=== PATIENT | female | born 1960 | race Caucasian/White ===

== ENCOUNTER → 2016-09-14 | Outpatient (CLI) | payer OTHER ==
--- NOTE | 2016-09-14 16:25 | P.HPBAR ---
Bariatric H&P - History & Physicial H&P Date: 09/14/16 History & Physicial: Visit/CC: Patient initial contact: Initial weight: 113.398 kg Initial weight in pounds: Height: 5 ft 6 in Initial BMI: Last weight: Current weight: 98.475 kg Current weight in pounds: Current BMI: 35.0 [place] body weight (based on NIH guidelines): 58.967 kg Excess body weight loss: The patient is a 55 year-old F who presents for Bariatric Assessment. The patient is status post sleeve gastrectomy. She's doing quite well. 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 Past Anesthesia/Blood Transfusion Reactions: Motion Sickness, Postoperative Nausea & Vomiting (PONV) Past Psychological History: No Psychological Hx Reported Smoking Status: Never smoker Past Alcohol Use History: Occasional Past Drug Use History: None Reported - Past Family History Brother(s) Family Medical History: No Reported History (Patient has 2 brothers no major medical problems) Sister(s) Family Medical History: No Reported History (Patient has 2 sisters no major medical problems) Son(s) Family Medical History: No Reported History (Patient has 2 sons no major medical problems) Daughter(s) Family Medical History: No Reported History (Patient has one daughter no major medical problems) Mother Family Medical History: No Reported History (Mother is 78-year-old and had history of PAD as well as abdominal aortic and resume repair with a stent placement.) Additional Family Medical History / Comment(s): PVD-W/ STENTS PLACEMENT,AAA REPAIR Father Family Medical History: Coronary Artery Disease (CAD) (Father is 79-year-old has history of heart disease.) Additional Family Medical History / Comment(s): HEART DISEASE Surgical - Exam - General well developed, no distress - Eyes PERRL - ENT normal pinna - Neck no masses - Respiratory normal expansion - Cardiovascular Rhythm: regular - Abdomen Abdomen: soft, non tender Bariatric Assessment & Plan Plan: The patient is status post sleeve gastrectomy. She did quite well. She'll follow-up in 2 weeks for recheck. Bariatric Checklist Checklist: Plan: Checklist: EGD: 1. Hiatal hernia: 2. H. Pylori: HgbA1c: Vitamin D: Smoking: Never smoker Primary care physician referral: Psychiatry clearance: Cardiology clearance: Sleep study: Diet journal: VTE risk score: VTE risk level: Rehab needs at discharge:
== END | disposition home or self-care (01) ==
CPT/HCPCS: 99211

== ENCOUNTER → 2016-09-28 | Outpatient (CLI) | payer OTHER ==
[2016-09-28 14:50] VITALS: BP 116/65; PULSE 80; RESP 16; TEMP 97.2
[2016-09-28 15:18] VITALS: BMI 34.3
--- NOTE | 2016-09-28 15:45 | P.HPBAR ---
Bariatric H&P - History & Physicial H&P Date: 09/28/16 History & Physicial: Visit/CC: Sleeve follow-up Patient initial contact: Initial weight: 113.398 kg Initial weight in pounds: 250.00 Height: 5 ft 6 in Initial BMI: 40.9 Last weight: Current weight: 96.479 kg Current weight in pounds: 212.00 Current BMI: 34.3 [place] body weight (based on NIH guidelines): 58.967 kg Excess body weight loss: 31.0% The patient is a 55 year-old F who presents for Bariatric Assessment. The patient presents for gastric sleeve follow-up. She is doing quite well. She is approximately 1 month postop. She has minimal GERD symptoms. 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 Past Anesthesia/Blood Transfusion Reactions: Motion Sickness, Postoperative Nausea & Vomiting (PONV) Past Psychological History: No Psychological Hx Reported Smoking Status: Never smoker Past Alcohol Use History: Occasional Past Drug Use History: None Reported - Past Family History Brother(s) Family Medical History: No Reported History Sister(s) Family Medical History: No Reported History Son(s) Family Medical History: No Reported History Daughter(s) Family Medical History: No Reported History Mother Family Medical History: No Reported History Additional Family Medical History / Comment(s): PVD-W/ STENTS PLACEMENT,AAA REPAIR Father Family Medical History: Coronary Artery Disease (CAD) Additional Family Medical History / Comment(s): HEART DISEASE Surgical - Exam Vital Signs Temp Pulse Resp BP 97.2 F L 80 16 116/65 09/28/16 14:45 09/28/16 14:45 09/28/16 14:45 09/28/16 14:45 - General well developed, no distress - Eyes PERRL - ENT normal pinna - Neck no masses - Respiratory normal expansion - Cardiovascular Rhythm: regular - Abdomen Abdomen: soft, non tender Bariatric Assessment & Plan Plan: Status post sleeve gastrectomy. Patient doing quite well. Her GERD symptoms will be observed. She is currently being treated with omeprazole. Bariatric Checklist Checklist: Plan: Checklist: EGD: 1. Hiatal hernia: 2. H. Pylori: HgbA1c: Vitamin D: Smoking: Never smoker Primary care physician referral: Psychiatry clearance: Cardiology clearance: Sleep study: Diet journal: VTE risk score: VTE risk level: Rehab needs at discharge:
== END | disposition home or self-care (01) ==
LOC: BARWHC3 14:38
PROVIDERS: ATTEND Surgery
DX: Z48.815 Encounter for surgical aftercare following surgery on the digestive system (principal); Z98.84 Bariatric surgery status; Z71.3 Dietary counseling and surveillance; Z68.34 Body mass index [BMI] 34.0-34.9, adult; K21.9 Gastro-esophageal reflux disease without esophagitis; Z79.899 Other long term (current) drug therapy
CPT/HCPCS: 99211

== ENCOUNTER → 2016-11-09 | Outpatient (CLI) | payer OTHER ==
[2016-11-09 15:34] VITALS: BP 121/80; PULSE 77; RESP 16; TEMP 97.4; BMI 33.8
--- NOTE | 2016-11-09 16:08 | P.HPBAR ---
Bariatric H&P - History & Physicial H&P Date: 11/09/16 History & Physicial: Visit/CC: sleeve follow-up Patient initial contact: Initial weight: 113.398 kg Initial weight in pounds: 250.00 Height: 5 ft 5 in Initial BMI: 41.5 Last weight: Current weight: 92.278 kg Current weight in pounds: 203.00 Current BMI: 33.8 [place] body weight (based on NIH guidelines): 56.699 kg Excess body weight loss: 37.5% The patient is a 56 year-old F who presents for Bariatric Assessment. Patient presents for sleeve follow-up. She has had some minimal [place] GERD. 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 Past Anesthesia/Blood Transfusion Reactions: Motion Sickness, Postoperative Nausea & Vomiting (PONV) Past Psychological History: No Psychological Hx Reported Smoking Status: Never smoker Past Alcohol Use History: Occasional Past Drug Use History: None Reported - Past Family History Brother(s) Family Medical History: No Reported History Sister(s) Family Medical History: No Reported History Son(s) Family Medical History: No Reported History Daughter(s) Family Medical History: No Reported History Mother Family Medical History: No Reported History Additional Family Medical History / Comment(s): PVD-W/ STENTS PLACEMENT,AAA REPAIR Father Family Medical History: Coronary Artery Disease (CAD) Additional Family Medical History / Comment(s): HEART DISEASE Surgical - Exam Vital Signs Temp Pulse Resp BP 97.4 F L 77 16 121/80 11/09/16 15:32 11/09/16 15:32 11/09/16 15:32 11/09/16 15:32 - General well developed, no distress - Eyes PERRL - ENT normal pinna - Neck no masses - Respiratory normal expansion - Cardiovascular Rhythm: regular - Abdomen Abdomen: soft, non tender Bariatric Assessment & Plan Plan: Status post sleeve gastrectomy. Patient's GERD symptoms will be observed. She is currently being treated with Prilosec. She'll follow-up in one month. Bariatric Checklist Checklist: Plan: Checklist: EGD: 1. Hiatal hernia: 2. H. Pylori: HgbA1c: Vitamin D: Smoking: Never smoker Primary care physician referral: Psychiatry clearance: Cardiology clearance: Sleep study: Diet journal: VTE risk score: VTE risk level: Rehab needs at discharge:
== END | disposition home or self-care (01) ==
LOC: BARWHC3 14:37
PROVIDERS: ATTEND Surgery
DX: Z48.815 Encounter for surgical aftercare following surgery on the digestive system (principal); Z71.3 Dietary counseling and surveillance; Z98.84 Bariatric surgery status; K21.9 Gastro-esophageal reflux disease without esophagitis; Z68.33 Body mass index [BMI] 33.0-33.9, adult; Z79.899 Other long term (current) drug therapy
CPT/HCPCS: 99211

== ENCOUNTER → 2017-11-29 | Outpatient (CLI) | payer OTHER ==
[2017-11-29 13:35] VITALS: BP 137/99; PULSE 77; RESP 16; TEMP 97.7; BMI 34.0
--- NOTE | 2017-11-29 16:52 | P.HPBAR ---
Bariatric H&P - History & Physicial H&P Date: 11/29/17 History & Physicial: Visit/CC: sleeve follow-up Patient initial contact: Initial weight: 113.398 kg Initial weight in pounds: 250.00 Height: 5 ft 5.5 in Initial BMI: 40.9 Last weight: Current weight: 94.347 kg Current weight in pounds: 208.00 Current BMI: 34.0 [place] body weight (based on NIH guidelines): 57.833 kg Excess body weight loss: 34.2% The patient is a 57 year-old F who presents for Bariatric Assessment. Patient presents today for sleeve gastric a fall. She's not been seen several years. She has complaints of diarrhea. She's also had weight gain. She denies any rectal bleeding Past Medical History Past Medical History: GERD/Reflux, Hyperlipidemia, Hypertension, Osteoarthritis (OA) Additional Past Medical History / Comment(s): ,VARICOSE VEINS, 11/29/17: c/o frequent diarrhea (Dr. 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 Past Anesthesia/Blood Transfusion Reactions: Motion Sickness, Postoperative Nausea & Vomiting (PONV) Past Psychological History: No Psychological Hx Reported Smoking Status: Never smoker Past Alcohol Use History: Occasional Past Drug Use History: None Reported - Past Family History Brother(s) Family Medical History: No Reported History Sister(s) Family Medical History: No Reported History Son(s) Family Medical History: No Reported History Daughter(s) Family Medical History: No Reported History Mother Family Medical History: No Reported History Additional Family Medical History / Comment(s): PVD-W/ STENTS PLACEMENT,AAA REPAIR Father Family Medical History: Coronary Artery Disease (CAD) Additional Family Medical History / Comment(s): HEART DISEASE Surgical - Exam Vital Signs Temp Pulse Resp BP 97.7 F 77 16 137/99 11/29/17 13:29 11/29/17 13:29 11/29/17 13:29 11/29/17 13:29 - General well developed, no distress - Eyes PERRL - ENT normal pinna - Neck no masses - Respiratory normal expansion - Cardiovascular Rhythm: regular - Abdomen Abdomen: soft, non tender Bariatric Assessment & Plan Plan: Patient has significant diarrhea. She'll undergo colonoscopy. She'll follow- up in the clinic in 1 month. Bariatric Checklist Checklist: Plan: Checklist: EGD: 1. Hiatal hernia: 2. H. Pylori: HgbA1c: Vitamin D: Smoking: Never smoker Primary care physician referral: Psychiatry clearance: Cardiology clearance: Sleep study: Diet journal: VTE risk score: VTE risk level: Rehab needs at discharge:
== END | disposition home or self-care (01) ==
LOC: BARWHC3 12:59
PROVIDERS: ATTEND Surgery
DX: Z48.815 Encounter for surgical aftercare following surgery on the digestive system (principal); R19.7 Diarrhea, unspecified; Z98.84 Bariatric surgery status
CPT/HCPCS: 99211

== ENCOUNTER 2021-04-22 22:24 | Inpatient (IN) | payer OTHER ==
--- NOTE | 2021-04-23 01:32 | ED ---
Psych HPI - General Chief Complaint: Psychiatric Symptoms Stated Complaint: Mental Health Time Seen by Provider: 04/22/21 23:24 Source: patient, police Mode of arrival: ambulatory - History of Present Illness Initial Comments: 60-year-old female patient presents to the emergency department today for psychiatric evaluation. She is accompanied by the franchise consultant. States that she had a bad day today and felt suicidal. Patient states she walked into traffic trying to get hit by a car. Patient denies history of depression, suicide attempt, or psychiatric admission. States she no longer feels suicidal. Denies any hallucinations. Denies homicidal ideation. Did have some alcohol today. Denies any street drug use. Denies any current physical symptoms or concerns. - Related Data Home Medications Medication Instructions Recorded Confirmed Atenolol [Tenormin] 50 mg PO BID 04/23/21 04/23/21 Isosorbide Mononitrate ER [Imdur] 30 mg PO DAILY 04/23/21 04/23/21 Magnesium Oxide [Mag-Ox] 800 mg PO DAILY 04/23/21 04/23/21 Allergies Allergy/AdvReac Type Severity Reaction Status Date / Time No Known Allergies Allergy Verified 04/23/21 08:07 Review of Systems ROS Statement: Those systems with pertinent positive or pertinent negative responses have been documented in the HPI. ROS Other: All systems not noted in ROS Statement are negative. Past Medical History Past Medical History: GERD/Reflux, Hyperlipidemia, Hypertension, Osteoarthritis (OA) Additional Past Medical History / Comment(s): ,VARICOSE VEINS, 11/29/17: c/o frequent diarrhea ,Dr. 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 Past Anesthesia/Blood Transfusion Reactions: Motion Sickness, Postoperative Nausea & Vomiting (PONV) Past Psychological History: No Psychological Hx Reported Smoking Status: Never smoker Past Alcohol Use History: Occasional Past Drug Use History: None Reported - Past Family History Brother(s) Family Medical History: No Reported History Sister(s) Family Medical History: No Reported History Son(s) Family Medical History: No Reported History Daughter(s) Family Medical History: No Reported History Mother Family Medical History: No Reported History Additional Family Medical History / Comment(s): PVD-W/ STENTS PLACEMENT,AAA REPAIR Father Family Medical History: Coronary Artery Disease (CAD) Additional Family Medical History / Comment(s): HEART DISEASE General Exam Limitations: no limitations General appearance: alert, in no apparent distress, other (Physical well- developed, well-nourished adult female patient in no acute distress. Vital signs upon presentation are temperature 98.4F, pulse 81, respirations 20, blood pressure 113/82, pulse ox 99% on room air.) Eye exam: Present: normal appearance, PERRL, EOMI. Absent: scleral icterus, conjunctival injection, periorbital swelling ENT exam: Present: normal exam, normal oropharynx, mucous membranes moist Respiratory exam: Present: normal lung sounds bilaterally. Absent: respiratory distress, wheezes, rales, rhonchi, stridor Cardiovascular Exam: Present: regular rate, normal rhythm, normal heart sounds. Absent: systolic murmur, diastolic murmur, rubs, gallop, clicks GI/Abdominal exam: Present: soft, normal bowel sounds. Absent: distended, tenderness, guarding, rebound, rigid Neurological exam: Present: alert, oriented X3, CN II-XII intact Psychiatric exam: Present: normal affect, normal mood. Absent: homicidal ideation, suicidal ideation Skin exam: Present: warm, dry, intact, normal color. Absent: rash Course Vital Signs 04/22/21 04/23/21 04/23/21 23:05 08:00 09:00 Temperature 98.4 F Pulse Rate 81 Respiratory 20 18 18 Rate Blood Pressure 113/82 O2 Sat by Pulse 99 Oximetry 04/23/21 10:00 Temperature Pulse Rate Respiratory 18 Rate Blood Pressure O2 Sat by Pulse Oximetry Medical Decision Making - Medical Decision Making 60 year-old female patient presents for evaluation of suicide attempt and ideation. She was cleared medically and evaluated by EPS. She will be admitted to the mental health unit for further evaluation and treatment. My attending is Dr. Frey. - Lab Data Lab Results 04/23/21 Range/Units 05:00 Urine Color Light Yellow Urine Appearance Clear (Clear) Urine pH 6.5 (5.0-8.0) Ur Specific [place] 1.004 (1.001-1.035) Urine Protein Negative (Negative) Urine Glucose (UA) Negative (Negative) Urine Ketones Negative (Negative) Urine Blood Negative (Negative) Urine Nitrite Negative (Negative) Urine Bilirubin Negative (Negative) Urine Urobilinogen <2.0 (<2.0) mg/dL Ur Leukocyte Esterase Small H (Negative) Urine RBC <1 (0-5) /hpf Urine WBC 6 H (0-5) /hpf Ur Squamous Epith Cells <1 (0-4) /hpf Amorphous Sediment Rare H (None) /hpf Urine Bacteria Moderate H (None) /hpf Urine Opiates Screen Not Detected (NotDetected) Ur Oxycodone Screen Not Detected (NotDetected) Urine Methadone Screen Not Detected (NotDetected) Ur Propoxyphene Screen Not Detected (NotDetected) Ur Barbiturates Screen Not Detected (NotDetected) U Tricyclic Antidepress Not Detected (NotDetected) Ur Phencyclidine Scrn Not Detected (NotDetected) Ur Amphetamines Screen Not Detected (NotDetected) U Methamphetamines Scrn Not Detected (NotDetected) U Benzodiazepines Scrn Not Detected (NotDetected) Urine Cocaine Screen Not Detected (NotDetected) U Marijuana (THC) Screen Not Detected (NotDetected) Disposition Clinical Impression: Depression Disposition: TRANSFER TO PSYCH HOSP/UNIT Condition: Serious - Out of Hospital Transfer - Req. Specs Out of Hospital Transfer - Requested Specifics: Psychiatric Non-ICU ([facility])
[2021-04-23 06:05] LABS: Amorphous Sediment,Urine Rare /hpf; Appearance,Urine Clear (Clear); Bacteria,Urine Moderate /hpf; Bilirubin,Urine Negative (Negative); Blood,Urine Negative (Negative); Color,Urine Light Yellow; Glucose,Urine (UA) Negative (Negative); Ketones,Urine Negative (Negative); Leukocyte Esterase,Urine Small (Negative); Nitrite,Urine Negative (Negative); PH, Urine 6.5 (5.0-8.0); Protein,Urine Negative (Negative); RBC,Urine <1 /hpf (0-5); Specific Gravity,Urine 1.004 (1.001-1.035); Squamous Epithelial Cell,Urine <1 /hpf (0-4); Urobilinogen,Urine <2.0 mg/dL (<2.0); WBC,Urine 6 /hpf (0-5)
[2021-04-23 06:15] LABS: Cocaine Screen,Urine Not Detected (NotDetected); Opiate Screen,Urine Not Detected (NotDetected); Phencyclidine Screen,Urine Not Detected (NotDetected); Urn Cannabinoid Scrn Not Detected (NotDetected)
[2021-04-23 06:16] LABS: Amphetamine Screen,Urine Not Detected (NotDetected); Barbiturate Screen,Urine Not Detected (NotDetected); Benzodiazepines Screen,Urine Not Detected (NotDetected); Methadone Screen, Urine Not Detected (NotDetected); Oxycodone Screen, Urine Not Detected (NotDetected); Tricyclic Antidepressant,Urine Not Detected (NotDetected)
[2021-04-23] MEDS ORDERED: MAG HYDROX/AL HYDROX/SIMETH 30 ML CUP PO PRN (09:58)
[2021-04-23] MEDS ORDERED: ACETAMINOPHEN TAB 325 MG TAB PO PRN (09:58)
[2021-04-23] MEDS ORDERED: MAGNESIUM HYDROXIDE 2,400 MG/10 ML CUP PO PRN (09:58)
[2021-04-23] MEDS ORDERED: LORazepam 1 MG TAB PO PRN (09:58)
[2021-04-23] MEDS ORDERED: HALOPERIDOL LACTATE 5 MG/ML 1 ML VIAL IM PRN (10:01)
[2021-04-23] MEDS ORDERED: LORazepam 2 MG/ML INJ IM PRN (10:02)
[2021-04-23] MEDS ORDERED: traZODone HCL 50 MG TAB PO PRN (14:52)
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
[2021-04-23] MEDS: atenoloL 50 MG TAB PO SCH (21:19)
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
[2021-04-24] MEDS: ISOSORBIDE MONONITRATE ER 30 MG TAB.ER.24H PO SCH ×2 (08:57→09:00)
[2021-04-24] MEDS: atenoloL 50 MG TAB PO SCH ×2 (08:58→08:59)
[2021-04-24] MEDS ORDERED: MAGNESIUM OXIDE 400 MG TAB PO SCH (09:00)
[2021-04-24 09:47] VITALS: BP 89/58; PULSE 98; RESP 16; TEMP 97.7
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
== END 2021-04-24 13:48 | disposition home or self-care (01) | DRG 881 ==
LOC: EC 22:24 → 3MHU 04-23 09:49
PROVIDERS: ADMIT Psychiatry & Neurology Psychiatry; ATTEND Psychiatry & Neurology Psychiatry
DX: F32.9 Major depressive disorder, single episode, unspecified (principal); R45.851 Suicidal ideations; F22 Delusional disorders; F60.89 Other specific personality disorders; K21.9 Gastro-esophageal reflux disease without esophagitis; E78.5 Hyperlipidemia, unspecified; I10 Essential (primary) hypertension; G47.00 Insomnia, unspecified; M25.569 Pain in unspecified knee; R45.87 Impulsiveness; M19.90 Unspecified osteoarthritis, unspecified site; R19.7 Diarrhea, unspecified; I83.90 Asymptomatic varicose veins of unspecified lower extremity; E66.9 Obesity, unspecified; Z68.35 Body mass index [BMI] 35.0-35.9, adult; Z79.899 Other long term (current) drug therapy; Z90.49 Acquired absence of other specified parts of digestive tract; Z62.810 Personal history of physical and sexual abuse in childhood; Z87.19 Personal history of other diseases of the digestive system; Z98.84 Bariatric surgery status; Z87.39 Personal history of other diseases of the musculoskeletal system and connective tissue; Z98.41 Cataract extraction status, right eye; Z98.890 Other specified postprocedural states; Z82.49 Family history of ischemic heart disease and other diseases of the circulatory system
CPT/HCPCS: 80306; 81001; 82075; 99285